=== PATIENT | male | born 1950 | race Caucasian/White ===

== ENCOUNTER 2017-01-03 09:35 | Outpatient (CLI) | payer MEDICARE ==
--- NOTE | 2017-01-03 10:48 | PRG ---
DATE OF SERVICE: 01/03/2017 HISTORY: Mr. Ramón Diego is a very pleasant 66-year-old gentleman who [facility] of a wound of the right knee. The patient is presently receiving dressing changes of Aquacel AG 3 times per week with the assistance of Home Health. The patient has no complaints t cherelle. He denies any fever or chills. PHYSICAL EXAMINATION: VITAL SIGNS: Pulse 89, respirations 18, blood pressure 110/74. EXTREMITIES: The wound of the right knee measures approximately 4.5 x 1.6 cm. The wound is granula ting. No purulent drainage is associated with the wound. No cellulitis of the right knee is apprec iated. No maceration of the skin of the periwound is noted. ASSESSMENT AND PLAN: 1. Right knee wound as described above. Dressing changes of Aquacel AG will be continued 3 times p er week after cleansing and irrigation with the assistance of Home Health. I will see Mr. Diego andrey barth in 3 weeks. The patient states he has a followup appointment with Dr. Rodriguez in 2 weeks. The patient states that he continues to receive physical therapy. 2. Hypertension. 3. Gout. 4. Deep venous thrombosis of the left lower extremity and right lower extremity one year apart. 5. Atrial fibrillation. 6. Peripheral vascular disease. 7. History of upper gastrointestinal bleeding. 8. Benign prostatic hypertrophy.
[2017-01-03] MEDS ORDERED: Sodium Chloride 0.9% 15 ML NEB ONE (17:00)
[2017-01-03] MEDS ORDERED: Lidocaine 4% Topical Sol 50 ML BOT ONE (17:00)
== END 2017-01-03 09:36 | disposition home or self-care (01) ==
LOC: WCC 09:35
PROVIDERS: ATTEND Family Medicine
DX: T81.89XD Other complications of procedures, not elsewhere classified, subsequent encounter (principal); I82.503 Chronic embolism and thrombosis of unspecified deep veins of lower extremity, bilateral; I48.91 Unspecified atrial fibrillation; I73.9 Peripheral vascular disease, unspecified; N40.0 Benign prostatic hyperplasia without lower urinary tract symptoms; I10 Essential (primary) hypertension; M10.9 Gout, unspecified
CPT/HCPCS: 97602; A4218; J2001

== ENCOUNTER 2017-01-26 10:34 | Outpatient (CLI) | payer MEDICARE ==
--- NOTE | 2017-01-26 12:11 | PRG ---
DATE OF SERVICE: 01/26/2017 HISTORY: Mr. Ramón Diego is a very pleasant 66-year-old gentleman who [facility] evaluation of a wound of the right knee. The patient is currently receiving dressing changes of Aquacel AG 3 times per week with the assistance of Home Health. The patient has no complaints t cherelle. He denies any fever or chills. PHYSICAL EXAMINATION: VITAL SIGNS: Temperature 97.6, pulse 79, respirations 18, blood pressure 110/64. EXTREMITIES: The wound of the right knee measures approximately 3.0 x 1.2 cm. The dimensions of th e wound at the time of the patient's visit on 01/03/2017 were approximately 4.5 x 1.6 cm. No purule nt drainage is associated with the wound. No cellulitis of the right knee is appreciated. No macer ation of the skin of the periwound is noted. ASSESSMENT AND PLAN: 1. Right knee wound as described above. Dressing changes of Aquacel AG will be continued 3 times p er week after cleansing and irrigation with the assistance of Home Health. I will see Mr. Diego andrey barth in 3 weeks. The patient states that he has a followup appointment with Orthopedic Surgery. 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 2. Hypertension. 3. Gout. 4. Deep venous thrombosis of the left lower extremity and right lower extremity 1 year apart. 5. Atrial fibrillation. 6. Peripheral vascular disease. 7. History of upper gastrointestinal bleeding. 8. Benign prostatic hypertrophy.
[2017-01-26] MEDS ORDERED: Sodium Chloride 0.9% 15 ML NEB ONE (17:28)
== END 2017-01-26 10:35 | disposition home or self-care (01) ==
LOC: WCC 10:34
PROVIDERS: ATTEND Family Medicine
DX: S81.001D Unspecified open wound, right knee, subsequent encounter (principal); I10 Essential (primary) hypertension; M10.9 Gout, unspecified; I73.9 Peripheral vascular disease, unspecified; N40.0 Benign prostatic hyperplasia without lower urinary tract symptoms; I82.403 Acute embolism and thrombosis of unspecified deep veins of lower extremity, bilateral; I48.91 Unspecified atrial fibrillation
CPT/HCPCS: 97602; A4218

== ENCOUNTER 2017-02-16 14:28 | Outpatient (CLI) | payer MEDICARE ==
--- NOTE | 2017-02-16 12:48 | PRG ---
DATE OF SERVICE: 02/16/2017 HISTORY: Mr. Ramón Diego is a very pleasant 66-year-old gentleman who presents to the [facility] for evaluation of a wound of the right knee. The patient is presently receiving dressing changes o f Aquacel AG 3 times per week with the assistance of Home Health. Mr. Diego has no complaints today . He denies any fever or chills. PHYSICAL EXAMINATION: VITAL SIGNS: Temperature 97.4, pulse 90, respirations 18, blood pressure 124/75. EXTREMITIES: The wound of the right knee measures approximately 5.5 x 2.2 cm. No purulent drainage is associated with the wound. No cellulitis of the right knee is appreciated. No maceration of the skin of the periwound is noted. ASSESSMENT AND PLAN: 1. Right knee wound as described above. Dressing changes of Aquacel AG will be continued 3 times pe r week after cleansing and irrigation with the assistance of Home Health for 2 more weeks. The wound has almost healed completely and Mr. Diego will be discharged from clinic today with followup on a p.r.n. basis. 2. Hypertension. 3. Gout. 4. Deep venous thrombosis of the left lower extremity and right lower extremity 1 year apart. 5. At rial fibrillation. 6. Peripheral vascular disease. 7. History of upper gastrointestinal bleeding. 8. Benign prostatic hypertrophy.
== END 2017-02-16 14:29 | disposition home or self-care (01) ==
LOC: WCC 14:28
PROVIDERS: ATTEND Family Medicine
DX: T81.89XD Other complications of procedures, not elsewhere classified, subsequent encounter (principal); I10 Essential (primary) hypertension; M10.9 Gout, unspecified; I82.403 Acute embolism and thrombosis of unspecified deep veins of lower extremity, bilateral; I48.91 Unspecified atrial fibrillation; I73.9 Peripheral vascular disease, unspecified; N40.0 Benign prostatic hyperplasia without lower urinary tract symptoms
CPT/HCPCS: 97602

== ENCOUNTER 2017-06-10 11:11 | Outpatient (CLI) | payer MEDICARE | END 2017-06-10 11:12 | disposition home or self-care (01) | PROVIDERS: ATTEND Physical Medicine & Rehabilitation | DX: Z99.3 Dependence on wheelchair (principal); M62.838 Other muscle spasm; M62.451 Contracture of muscle, right thigh | CPT/HCPCS: 97139; G8978; G8979 ==

== ENCOUNTER 2017-09-08 13:04 | Emergency (ER) | payer MEDICARE ==
[2017-09-08 13:59] LABS: ALT (SGPT) 15 U/L (8-55); AST (SGOT) 21 U/L (5-34); Albumin 3.7 g/dL (3.4-4.8); Alkaline Phosphatase 96 U/L (40-150); Anion Gap 15 mmol/L (10-20); BUN (Urea Nitrogen) 8 mg/dL (8.4-25.7); Bilirubin, Total 1.9 mg/dL (0.2-1.2); Calc. Creatinine Clearance 0 mL/min (70-130); Calcium 9.2 mg/dL (7.8-10.44); Carbon Dioxide 20 mmol/L (23-31); Chloride 96 mmol/L (98-107); Digoxin 0.67 ng/mL (0.8-2.0); Estimated GFR-MDRD Greater than 90; Globulin 3.4 g/dL (2.4-3.5); Glucose 104 mg/dL (80-115); Potassium 4.2 mmol/L (3.5-5.1); Protein, Total 7.1 g/dL (5.8-8.1); Sodium 127 mmol/L (136-145)
[2017-09-08 14:01] LABS: CKMB 1.7 ng/mL (0-6.6); Troponin I Less than 0.010 ng/mL (< 0.028)
[2017-09-08 14:01] LABS: Anisocytosis SLIGHT = 6-15 cells (100X) (0-5/hpf); Band 14 % (5-11); Eosinophils 1 % (0-10); Hemoglobin 14.4 g/dL (14.0-18.0); Lymphocytes 8 % (21-51); MDiff Complete? YES; Mean Corpuscular HGB CONC 35.7 g/dL (32.0-36.0); Mean Corpuscular Hemoglobin 32.3 pg (27.0-31.0); Mean Corpuscular Volume 90.4 fl (80.0-94.0); Mean Platelet Volume 8.2 fL (7.4-10.4); Monocytes 8 % (0-10); Neutrophil 67 % (42-75); PLT Morphology Comment Appears Adequate; Platelet Count 183 thou/uL (130-400); RBC Distribution Width 13.9 % (11.5-14.5); Reactive Lymphocytes 2 % (0-10); Red Blood Cell (RBC) Count 4.46 mill/uL (4.70-6.10); White Blood Cell (WBC) Count 8.5 thou/uL (4.8-10.8)
[2017-09-08] MEDS ORDERED: Clindamycin/D5W 600 mg/50 ml Premix Bag ONE (14:33)
--- NOTE | 2017-09-08 14:50 | ULT ---
VENOUS DUPLEX SONOGRAM RIGHT LOWER EXTREMITY: HISTORY: Right leg pain and edema. FINDINGS: There is thickening of the gray of the common femoral vein at the greater saphenous junction and the superficial portion of the femoral vein and the popliteal vein. Good color and spectral Doppler padma w. Incomplete compressibility. No internal thrombus is reliable demonstrated. Inguinal lymph nodes measure up to 3.1 cm. IMPRESSION: 1. Incomplete compressibility and wall thickening of the deep venous structures of the right lower e xtremity are favored to be related to chronic phlebitis rather than deep vein thrombosis residua, as no thrombus is reliably demonstrated. 2. Reactive enlarged lymph nodes right groin. POS: [facility]
== END 2017-09-08 15:14 | disposition home or self-care (01) ==
LOC: SCSER 13:04
DX: L03.115 Cellulitis of right lower limb (principal); I48.91 Unspecified atrial fibrillation; I10 Essential (primary) hypertension; F17.210 Nicotine dependence, cigarettes, uncomplicated; Z79.899 Other long term (current) drug therapy; Z79.01 Long term (current) use of anticoagulants
CPT/HCPCS: 36415; 80053; 80162; 82553; 83605; 83880; 84484; 85025; 87040; 93005; 96374; J3490